=== PATIENT | female | born 1990 ===

== ENCOUNTER 2023-07-20 14:06 | Outpatient (AMB) | payer OTHER, SELFPAY ==
--- NOTE | 2023-07-20 14:19 | A.OFFPC_ITS ---
Vital Signs 07/20/23 14:20 Height 5 ft 8 in Weight 188 lb BMI 28.6 BP 104/66 Blood Pressure Location Lt brachial Position Sitting Pulse 83 Pulse Source Pulse Oximeter Pulse Oximetry (%) 99 Oxygen Delivery Method Room Air Intake Visit Reasons: 6 month follow up Intake Note: Pt is here today for 6 months follow up visit. Pt states that she had a positive test at home and she just wants to have a test done here to confirm it. Allergies No Known Allergies Allergy (Verified 07/20/23 14:21) Medication List - Last Reconciled 07/20/23 by Brynn Vazquez MD [fish oil 1,200] folic acid 0.8 mg PO DAILY multivitamin 1 tab PO DAILY Tobacco use date assessed: 07/20/23 Dental Screening Dental Screen Date: 07/20/23 Did you have a dental visit in the last 12 months?: Yes Did you have a dental problem in the last 6 months where you did not have access to dental care?: No Was dental information given to patient?: Patient has dentist HPI 6 month follow up HPI Details Pt presents to comfir positive test. LMP 06/12. 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 Jose Angel Landrum, Brenda Mckeon, Trenton Hardy and colleagues, with an educational soren from [employer]. Review of Systems Const All systems reviewed & are unremarkable except as noted in HPI and below Reports no additional complaints Eyes Reports no additional complaints ENT Reports no additional complaints Card Reports no additional complaints Resp Reports no additional complaints GI Reports no additional complaints Physical exam (Primary Care) Vital Signs: Last Vital Signs Pulse 83 07/20/23 14:20 BP 104/66 07/20/23 14:20 Pulse Ox 99 07/20/23 14:20 Oxygen Delivery Method Room Air 07/20/23 14:20 BMI result Body Mass Index 28.6 Tobacco/Smoking Status: Tobacco use Status Tobacco use date assessed 07/20/23 07/20/23 14:26 Patient Tobacco Use Status Never used Tobacco 07/20/23 14:26 e-Cigarette/Vaping Use Never Used 07/20/23 14:26 Thrive Assessment: Date of Thrive Assessment Date Thrive assessed 01/30/23 07/20/23 14:26 Const General: no acute distress Resp Effort & Inspection: normal respiratory effort Auscultation: clear to auscultation bilaterally Cardio Rhythm: regular rhythm Heart sounds: S1 normal heart sound present and S2 normal heart sound present GI Inspection: Yes normal to inspection Results AMB Test Urine AMB Test Urine Positive Last Edit by MARTA Echavarria on 07/20/23 14:33 Results Reviewed Results Reviewed: Laboratory Last Values [facility] Positive 07/20/23 14:28 Assessment and Plan Assessment & Plan (1) : Comment: LMP 06/12 Code(s): Z34.90 - Encounter for supervision of normal , unspecified, unspecified trimester Plan: refer to [facility] electronics technology instructor Orders: Orders AMB HCG Urine Test Today N92.6 - Irregular menstruation, unspecified Referrals [employer] SC[employer] CUT OFF OPERATOR Referral Z34.90 - Encounter for supervision of normal , unspecified, unspecified trimester Coding Level of Care Code Est Pt Level 3 (05691) Diagnoses Z34.90
[2023-07-20 14:20] VITALS: BP 104/66; PULSE 83; O2SAT 99; BMI 28.6
== END 2023-07-20 15:12 | disposition home or self-care (01) ==
PROVIDERS: PCP Internal Medicine; Visit Provider Internal Medicine
DX: N92.6 Irregular menstruation, unspecified (principal); Z32.01 Encounter for pregnancy test, result positive
CPT/HCPCS: 81025; 99213

== ENCOUNTER 2024-02-07 09:17 | Outpatient (AMB) | payer OTHER, SELFPAY ==
--- NOTE | 2024-02-07 09:17 | MHC.PC.OV ---
Vital Signs 02/07/24 09:18 Height 5 ft 8 in Weight 190 lb BMI 28.9 BP 108/66 Blood Pressure Location Rt brachial Position Sitting Pulse 73 Pulse Source Pulse Oximeter Pulse Oximetry (%) 99 Oxygen Delivery Method Room Air Intake Visit Reasons: Annual PE Intake Note: Pt is here today for PE. Allergies No Known Allergies Allergy (Verified 02/07/24 09:19) Medication List - Last Reconciled 02/07/24 by Brynn Vazquez MD [fish oil 1,200] folic acid 0.8 mg PO DAILY multivitamin 1 tab PO DAILY Tobacco use date assessed: 02/07/24 Dental Screening Dental Screen Date: 02/07/24 Did you have a dental visit in the last 12 months?: Yes Did you have a dental problem in the last 6 months where you did not have access to dental care?: No Was dental information given to patient?: Patient has dentist HPI Annual PE HPI Details PATIENT PRESENTS FOR PHYSICAL. She complains of irritated lesion on her left wrist present for few months. Patient works as a nurse wearing gloves and the lesion gets irritated and has not been healed. 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 1. Little interest or pleasure in doing things: not at all 2. Feeling down, depressed, or hopeless: not at all 3. Trouble falling or staying asleep, or sleeping too much: not at all 4. Feeling tired or having little energy: not at all 5. Poor appetite or overeating: not at all 6. Feeling bad about yourself - or that you are a failure or have let yourself or your family down: not at all 7. Trouble concentrating on things, such as reading the newspaper or watching television: not at all 8. Moving or speaking so slowly that other people could have noticed. Or the opposite - being so fidgety or restless that you have been moving around a lot more than usual: not at all 9. Thoughts that you would be better off or of hurting yourself in some way: not at all Total score: 0 Depression Screening Interpretation: Negative Depression Screening Done: Yes Source: Developed by Drs. Jose Angel Landrum, Brenda Mckeon, Trenton Hardy and colleagues, with an educational soren from [facility]. Thrive Questionnaire Date Thrive assessed: 02/07/24 I am a: Patient What is your living situation today?: I have a steady place to live Within the past 12 months, did the food you bought not last and you didn't have the money to get more?: Never true Within the past 12 months, did you worry whether your food would run out before you got money to buy more?: Never true Do you have trouble paying for medicines?: No Do you have trouble getting transportation to medical appointments?: No Do you have trouble paying your heating and electricity bill?: No Do you have trouble taking care of your child, family member or friend?: No Do you have trouble with day-to-day activities such as bathing, preparing meals, shopping, managing finances, etc.?: No Are you currently unemployed and looking for a job?: No Are you interested in more education?: No Please select the resources that you would like help with: None THRIVE Score: 0 AUDIT C Alcohol Use Questionnaire (AUDIT-C) 1. How often do you have a drink containing alcohol?: Never 3. How often do you have six or more drinks on one occasion?: Never Total Score: 0 MARCELO-7 AMB Questionnaire MARCELO-7 Date MARCELO - 7 assessed: 02/07/24 Feeling nervous, anxious, or on edge: 0 = Not at all Not being able to stop or control worryin = Not at all Worrying too much about different things: 0 = Not at all Trouble relaxin = Not at all Being so restless that it is hard to sit still: 1 = Several days Becoming easily annoyed or irritable: 1 = Several days Feeling afraid as if something awful might happen: 0 = Not at all Total MARCELO-7 score (0-4 normal; 5-9 mild; 10-14 moderate; 15-21 severe): 2 Source: Developed by Drs. Jose Angel Landrum, Brenda Mckeon, Trenton Hardy and colleagues, with an educational soren from [facility]. Review of Systems Const All systems reviewed & are unremarkable except as noted in HPI and below Reports no additional complaints Eyes Reports no additional complaints ENT Reports no additional complaints Card Reports no additional complaints Resp Reports no additional complaints GI Reports no additional complaints Reports no additional complaints Physical exam (Primary Care) Vital Signs: Last Vital Signs Pulse 73 02/07/24 09:18 BP 108/66 02/07/24 09:18 Pulse Ox 99 02/07/24 09:18 Oxygen Delivery Method Room Air 02/07/24 09:18 BMI result Body Mass Index 28.9 Tobacco/Smoking Status: Tobacco use Status Tobacco use date assessed 02/07/24 02/07/24 09:23 Patient Tobacco Use Status Never used Tobacco 02/07/24 09:23 e-Cigarette/Vaping Use Never Used 02/07/24 09:23 Depression Screening Interpretation: Negative Thrive Assessment: Date of Thrive Assessment Date Thrive assessed 01/30/23 02/07/24 09:23 Const General: no acute distress HENMT Head: Yes normal to inspection Ears: hearing grossly normal bilaterally Face and sinus: Yes normal facial exam Mouth: Normal oral and palatal mucosa present Throat: Yes posterior oropharynx normal Eyes General: appearance normal, both eyes and all related structures Neck Neck: Yes no lymphadenopathy and Yes supple Resp Effort & Inspection: normal respiratory effort Auscultation: clear to auscultation bilaterally Cardio Rhythm: regular rhythm Heart sounds: S1 normal heart sound present and S2 normal heart sound present GI Inspection: Yes normal to inspection Palpation (GI): Soft to palpation Percussion: Yes normal to percussion Auscultation: normal bowel sounds Skin Other: There is a 1 cm raised erythematous with central ulceration lesion on the left wrist, no discharge Assessment and Plan Assessment & Plan (1) Skin growth: Code(s): D49.2 - Neoplasm of unspecified behavior of bone, soft tissue, and skin Plan: refer to derma (2) Annual physical exam: Code(s): Z00.00 - Encounter for general adult medical examination without abnormal findings Plan: Well-balanced diet regular physical activity discussed with the patient, she is up-to-date with the Pap smear by business practices officer Orders: Orders Complete Blood Count no Diff Today Z00.00 - Encounter for general adult medical examination without abnormal findings Comprehensive [place]. Panel Fast Today Z00.00 - Encounter for general adult medical examination without abnormal findings Lipid Panel Today Z00.00 - Encounter for general adult medical examination without abnormal findings TSH reflex Free T4 Today Z00.00 - Encounter for general adult medical examination without abnormal findings UA w Microscopic Today Z00.00 - Encounter for general adult medical examination without abnormal findings Referrals Dermatology Referral D49.2 - Neoplasm of unspecified behavior of bone, soft tissue, and skin Coding Level of Care Code Est Pt Prev Care 18-39y(70714) Diagnoses Skin growth D49.2 Annual physical exam Z00.00
[2024-02-07 09:18] VITALS: BP 108/66; PULSE 73; O2SAT 99; BMI 28.9
== END 2024-02-07 10:20 | disposition home or self-care (01) ==
LOC: HO.HMGC 09:17
PROVIDERS: PCP Internal Medicine; Visit Provider Internal Medicine
DX: D49.2 Neoplasm of unspecified behavior of bone, soft tissue, and skin (principal); Z00.00 Encounter for general adult medical examination without abnormal findings
CPT/HCPCS: 99395